=== PATIENT | female | born 1990 | race Caucasian/White ===

== ENCOUNTER 2018-10-14 21:36 | Inpatient (IN) ==
[2018-10-14] MEDS ORDERED: ACETAMINOPHEN 325 MG TABLET PO PRN (21:59)
[2018-10-14] MEDS ORDERED: BUTORPHANOL 2 MG/ML VIAL IV PRN (21:59)
[2018-10-14 22:20] LABS: Basophils % 0.2 % (0.0-0.8); Eosinophils # 0.6 10*3/uL (0.0-0.87); Eosinophils % 5.9 % (0.00-10.9); Hematocrit 33.1 VOL% (35.7-47.0); Hemoglobin 10.9 GM/DL (12.0-16.0); Immature Granulocytes % 0.9 %; Immature Granulocytes Absolute 0.09 #; Lymphocytes # 1.7 10*3/uL (1.4-4.0); Lymphocytes % 15.7 % (21.3-54.2); Mean Corpuscular HGB Conc 32.9 GM/DL (32-36); Mean Corpuscular Hemoglobin 29 PG (27-34); Mean Corpuscular Volume 86.9 FL (87-102); Mean Platelet Volume 9.9 FL (9.6-12.0); Monocytes # 0.8 10*3/uL (0.11-0.8); Monocytes % 7.4 % (1.7-12.7); Neutrophils # 7.4 10*3/uL (1.4-7.4); Neutrophils % 69.9 % (38.7-73.9); Platelet Count 311 T/CUMM (130-400); Red Blood Count 3.81 MC/CUMM (3.8-5.5); Red Cell Distribution Width 13.2 % (9.3-17.3); White Blood Count 10.5 T/CUMM (4-12)
[2018-10-15] MEDS: LACTATED RINGERS 1,000 ML IV SCH ×4 (00:03→21:47)
[2018-10-15] MEDS: ONDANSETRON 4 MG/2 ML VIAL IV PRN ×2 (13:15→22:24)
[2018-10-15] MEDS: MEPERIDINE 50 MG/1 ML VIAL IV PRN ×3 (13:15→22:23)
[2018-10-16] MEDS ORDERED: OXYTOCIN/LR 20 UNIT/1,000 ML BAG IV ONE ×2 (04:56→20:12)
[2018-10-16] MEDS ORDERED: OXYTOCIN/LR 20 UNIT/1,000 ML BAG IV SCH (05:00)
[2018-10-16] MEDS: ONDANSETRON 4 MG/2 ML VIAL IV PRN ×2 (06:05→12:05)
[2018-10-16] MEDS: MEPERIDINE 50 MG/1 ML VIAL IV PRN ×3 (06:05→11:07)
[2018-10-16] MEDS ORDERED: CITRIC ACID/SODIUM CITRATE 30 ML UDCUP PO ONE (13:08)
[2018-10-16] MEDS ORDERED: FAMOTIDINE 20 MG/2 ML VIAL IV ONE (13:08)
[2018-10-16] MEDS ORDERED: LACTATED RINGERS 1,000 ML IV ONE (13:08)
[2018-10-16] MEDS ORDERED: NALOXONE 0.4 MG/ML VIAL IV PRN (13:09)
[2018-10-16] MEDS ORDERED: ePHEDrine 50 MG/ML AMP IV PRN (13:09)
[2018-10-16] MEDS ORDERED: PROMETHAZINE 25 MG/1 ML VIAL IM ONE (13:09)
[2018-10-16] MEDS ORDERED: CITRIC ACID/SODIUM CITRATE 30 ML UDCUP ONE (13:10)
[2018-10-16] MEDS ORDERED: fentaNYL 2 MCG/ROPIV 0.2% EPID 100 ML EPIDURAL ONE (13:11)
[2018-10-16] MEDS ORDERED: fentaNYL 2 MCG/ROPIV 0.2% EPID 100 ML EPIDURAL SCH (13:30)
[2018-10-16] MEDS ORDERED: miSOPROStol 200 MCG TABLET ONE (14:14)
[2018-10-16] MEDS ORDERED: METHYLERGONOVINE 0.2 MG/1 ML AMP ONE (14:15)
[2018-10-16] MEDS ORDERED: CARBOPROST TROMETHAMINE 250 MCG/ML AMP IM ONE (14:15)
[2018-10-16 14:16] LABS: Apearance,Urine CLEAR (Clear); Bilirubin,Urine Negative (Negative); Blood, Urine Moderate mg/dL (Negative); Glucose,Urine (UA) Negative (Negative); Ketones,Urine 5 mg/dL (Negative); Nitrite,Urine Negative (Negative); Protein,Urine Negative; RBC,Urine 8 /HPF (0-4); Squamous Epithelial Cell,Urine Occasional /HPF (0-10); Urine Color Yellow (Yellow); Urine Specific Gravity 1.011 (1.001-1.035); Urine Urobilinogen < 2.0 EU/DL (0.2-1.0); WBC,Urine 7 /HPF (0-6)
[2018-10-16] MEDS ORDERED: BENZOCAINE 20%/MENTHOL 0.5% SPRAY 56 GM CAN TOP PRN (20:38)
[2018-10-16] MEDS ORDERED: oxyCODONE/ACETAMINOPHEN 5-325 MG TABLET PO PRN (20:38)
[2018-10-16] MEDS: IBUPROFEN 800 MG TABLET PO PRN (22:09)
[2018-10-16] MEDS ORDERED: ACETAMINOPHEN/CODEINE 300-30 MG TABLET ONE (23:32)
[2018-10-16] MEDS: DOCUSATE SODIUM 100 MG CAPSULE PO SCH (23:35)
[2018-10-16] MEDS: ACETAMINOPHEN/CODEINE 300-30 MG TABLET PO PRN (23:37)
[2018-10-17 06:06] LABS: Basophils % 0.2 % (0.0-0.8); Eosinophils # 0.5 10*3/uL (0.0-0.87); Hematocrit 27.7 VOL% (35.7-47.0); Immature Granulocytes % 0.8 %; Immature Granulocytes Absolute 0.11 #; Lymphocytes # 1.9 10*3/uL (1.4-4.0); Lymphocytes % 14.2 % (21.3-54.2); Mean Corpuscular HGB Conc 32.5 GM/DL (32-36); Mean Corpuscular Hemoglobin 29 PG (27-34); Mean Corpuscular Volume 88.2 FL (87-102); Mean Platelet Volume 10.1 FL (9.6-12.0); Monocytes # 0.9 10*3/uL (0.11-0.8); Monocytes % 7.1 % (1.7-12.7); Neutrophils # 9.6 10*3/uL (1.4-7.4); Neutrophils % 73.7 % (38.7-73.9); Platelet Count 249 T/CUMM (130-400); Red Blood Count 3.14 MC/CUMM (3.8-5.5); Red Cell Distribution Width 13.4 % (9.3-17.3); White Blood Count 13.1 T/CUMM (4-12)
[2018-10-17] MEDS ORDERED: ACETAMINOPHEN 325 MG TABLET PO PRN (07:09)
[2018-10-17] MEDS ORDERED: RHO(D) IMMUNE GLOBULIN 300 MCG SYRINGE IM ONE (07:09)
[2018-10-17] MEDS ORDERED: LANOLIN 50% CREAM 0.3 OZ TUBE TOP PRN (07:09)
[2018-10-17] MEDS ORDERED: ONDANSETRON 4 MG/2 ML VIAL IV PRN (07:09)
[2018-10-17] MEDS ORDERED: BISACODYL 10 MG SUPP RECTAL PRN (07:09)
[2018-10-17] MEDS ORDERED: WITCH HAZEL PADS 100/JAR TOP PRN (07:09)
[2018-10-17] MEDS ORDERED: IBUPROFEN 800 MG TABLET PO PRN (07:09)
[2018-10-17] MEDS ORDERED: MEASLES/MUMPS/RUBELLA VACCINE 0.5 ML VIAL SUBCUT ONE (07:09)
[2018-10-17] MEDS ORDERED: BENZOCAINE 20%/MENTHOL 0.5% SPRAY 56 GM CAN TOP PRN (07:09)
[2018-10-17] MEDS ORDERED: oxyCODONE/ACETAMINOPHEN 5-325 MG TABLET PO PRN ×2 (07:09)
[2018-10-17] MEDS ORDERED: OXYTOCIN/LR 20 UNIT/1,000 ML BAG IV ONE (07:09)
[2018-10-17] MEDS ORDERED: HYDROCORTISONE 2.5% RECTAL CREAM 30 GM TUBE TOP PRN (07:09)
[2018-10-17] MEDS ORDERED: DIPH/TET/ACEL PERT BOOSTER VACCINE 0.5 ML VIAL IM ONE (07:09)
[2018-10-17] MEDS: DOCUSATE SODIUM 100 MG CAPSULE PO SCH ×2 (08:41→21:03)
[2018-10-17] MEDS ORDERED: DOCUSATE SODIUM 100 MG CAPSULE PO SCH (09:00)
[2018-10-17] MEDS: IBUPROFEN 800 MG TABLET PO PRN (10:22)
[2018-10-17] MEDS: ACETAMINOPHEN/CODEINE 300-30 MG TABLET PO PRN ×3 (10:23→21:01)
[2018-10-18] MEDS: IBUPROFEN 800 MG TABLET PO PRN ×2 (00:35→09:52)
[2018-10-18 05:36] LABS: Basophils % 0.3 % (0.0-0.8); Eosinophils # 0.5 10*3/uL (0.0-0.87); Eosinophils % 4.6 % (0.00-10.9); Hemoglobin 8.2 GM/DL (12.0-16.0); Immature Granulocytes Absolute 0.12 #; Lymphocytes # 1.8 10*3/uL (1.4-4.0); Mean Corpuscular HGB Conc 31.5 GM/DL (32-36); Mean Corpuscular Hemoglobin 28 PG (27-34); Mean Corpuscular Volume 87.8 FL (87-102); Mean Platelet Volume 9.9 FL (9.6-12.0); Monocytes # 0.8 10*3/uL (0.11-0.8); Monocytes % 6.4 % (1.7-12.7); Neutrophils # 8.6 10*3/uL (1.4-7.4); Neutrophils % 72.7 % (38.7-73.9); Platelet Count 241 T/CUMM (130-400); Red Blood Count 2.96 MC/CUMM (3.8-5.5); Red Cell Distribution Width 13.6 % (9.3-17.3); White Blood Count 11.8 T/CUMM (4-12)
[2018-10-18 08:00] VITALS: BP 100/57
[2018-10-18] MEDS: DOCUSATE SODIUM 100 MG CAPSULE PO SCH (08:19)
== END 2018-10-18 13:35 | disposition home or self-care (01) | DRG 807 ==
LOC: N.LDOUT 21:36 → N.LD 21:38 → N.OB 10-16 20:25
PROVIDERS: ADMIT Specialist; ATTEND Specialist